=== PATIENT | female | born 2000 | race Caucasian/White ===

== ENCOUNTER 2022-06-27 15:11 | Emergency (ER) | payer BC, SELFPAY ==
[2022-06-27 15:12] VITALS: BP 130/79; PULSE 80; RESP 15; TEMP 36.7; O2SAT 100; BMI 29.7
--- NOTE | 2022-06-27 15:13 | ED.RN ---
PT STATES STANDING MAKES HER ABD PAIN WORSE. BUT SHE IS ALSO HAVING PAIN IN HER FEET.
[2022-06-27 16:11] LABS: Mucous, Urine 0 SEEN /hpf (<or=2+)
[2022-06-27 16:14] LABS: Color, Urine Amber (Yellow); Glucose, Dipstick Normal (Normal); Ketone-Dipstick Negative (Negative); Leukocyte Esterase-Dipstick Negative /ul (Negative); Nitrite-Dipstick Positive (Negative); Occult Blood-Urine 250 /ul (Negative); Protein-Dipstick 30 mg/dl (Negative); Specific Gravity, Urine 1.025 (1.002-1.030); Urine Clarity Sl. Cloudy (Clear); Urine Urobilinogen 8 mg/dl (Normal)
--- NOTE | 2022-06-27 16:15 | CT_ITS ---
STUDY: CT ABDOMEN AND PELVIS WITHOUT CONTRAST ADMINISTRATION OF 1648 HOURS ON 06/27/2022 REASON FOR EXAM: 21-year-old female with left flank pain. RADIATION DOSAGE (If Supplied By Facility): CTDIvol = ( 9.64 ) mGy, DLP = ( 481.62 ) mGycm TECHNIQUE: Transaxial images were obtained from the dome of the diaphragm to the symphysis pubis without oral contrast, and without intravenous contrast. Sagittal and coronal images were reconstructed. COMPARISON: None. FINDINGS: The visualized lung bases are unremarkable. The visualized portions of the heart are within normal limits. Normal liver. Normal gallbladder and extrahepatic biliary system. No cholelithiasis or cholecystitis Normal spleen. Normal pancreas. No pancreatitis or pancreatic mass lesions. Normal bilateral adrenal glands. Normal right kidney. Mildly enlarged left kidney with a mild left hydronephrosis and hydroureter to the level of a 3 mm in diameter calculus in the distal left ureter, just above the left ureterovesical junction. No other left renal abnormalities. Normal visualized stomach. Normal small intestine. No diverticulitis, colitis, intestinal obstruction. The appendix is visualized and appears normal. No appendicitis. Normal abdominal aorta. Normal inferior vena cava. Normal retroperitoneum. Normal urinary bladder. Normal anteverted uterus. No ovarian cystic or solid mass lesions. Normal abdominal wall. Normal osseous structures. CT/Abdomen/Pelvis without Cont IMPRESSION: 1. Mildly enlarged left kidney with a mild left hydronephrosis and hydroureter to the level of a 3 mm in diameter calculus in the distal left ureter, just above the left ureterovesical junction 2. No evidence of other renal abnormalities. 3. No appendicitis, diverticulitis, colitis, or intestinal obstruction. 4. No cholecystitis or pancreatitis. 6. Normal anteverted uterus and normal ovaries. Electronically Signed: Aureliano Charles MD at 17:32 EDT ,
[2022-06-27 16:16] LABS: Urine Bilirubin Dipstick 6 mg/dL (Negative)
[2022-06-27 16:18] LABS: Internal QC Validated? YES +Cl - CLEAR BKGD; Pregnancy, Urine Negative Negative
[2022-06-27] MEDS: Ketorolac 15 MG/ML Vial IV (16:20)
[2022-06-27] MEDS: Ondansetron 4 MG/2 ML Vial IV (16:20)
[2022-06-27 16:22] LABS: Bacteria 1+ /hpf (None Seen); Red Blood Cells-Urine 50-100 SEEN /hpf (0-5); White Blood Cells 0-5 SEEN /hpf (0-5)
[2022-06-27 16:23] LABS: Squamous Epithelial Cells - UA 5-10 SEEN /hpf (5-10)
--- NOTE | 2022-06-27 16:23 | EX.ED.DYSGE1 ---
HPI History of Present Illness Chief Complaint: Flank Pain Informant: patient Narrative Narrative: Patient is a 21-year-old female presenting with left-sided flank pain. She states it started this morning after she was already awake for the day. Its been in her left lower back and the pain has been constant but fluctuates in intensity. She notes that sharp in her back and more pressure in the front of her left flank/lower abdominal area. She had a kidney infection when she was in the eighth grade and denies any history of kidney stones. Denies any urinary symptoms such as hematuria, frequency or urgency. Did take an azo [id number] prior to arrival has not urinated since. Notes family history of kidney stones in both her parents. Has nausea but no vomiting. Denies any fever or chills. Did take a Naprosyn around 12 PM today. Does not get periods because she is on the Depo-Provera shot. Initially went to urgent care and then was sent to the ER. No other complaints at this time. PFSH PFSH Home Medications ciprofloxacin HCl 500 mg tablet (Cipro) 500 mg PO BID #14 tabs 06/27/22 [Rx Last Taken Unknown] ondansetron 4 mg disintegrating tablet 4 mg PO Q6H PRN nausea and vomiting #10 tabs 06/27/22 [Rx Last Taken Unknown] oxycodone-acetaminophen 5 mg-325 mg tablet (Percocet) 1 tab PO Q6H PRN pain 3 days #12 tabs 06/27/22 [Rx Last Taken Unknown] tamsulosin 0.4 mg capsule (Flomax) 0.4 mg PO DAILY #7 caps 06/27/22 [Rx Last Taken Unknown] Allergy/AdvReac Type Severity Reaction Status Date / Time No Known Allergies Allergy Verified 06/27/22 15:12 Social History Smoking Status: Current every day smoker tobacco type: cigarettes, e-cigarettes and smokeless tobacco ROS ROS ED Constitutional Constitutional ED: Denies chills or fever(s) Eyes Eyes: Denies change in vision ENT ENT ED: Denies sore throat Cardiovascular Cardiovascular: Denies chest pain Respiratory/Chest Respiratory/Chest: Denies cough Gastrointestinal Gastrointestinal: Reports abdominal pain, constipation and nausea; Denies diarrhea, melena or vomiting Genitourinary Genitourinary ED: Denies dysuria, hematuria or urinary frequency Musculoskeletal Musculoskeletal: Reports back pain; Denies arthralgias or myalgias Integumentary Denies rash Neurologic Neurologic: Denies headache(s) or weakness Psychiatric Psychiatric: Denies anxiety EXAM Physical Exam Const Vital Signs: 06/27/22 15:12 06/27/22 18:30 06/27/22 21:00 Temperature 98.0 F Temperature Source Temporal Pulse Rate 80 77 74 Respiratory Rate 15 18 13 Blood Pressure 130/79 H 163/84 H 146/94 H Blood Pressure Mean 96 110 Pulse Ox 100 99 98 Oxygen Delivery Method Room Air Room Air Positive well nourished and well developed General Appearance ED: well developed and NAD HEENT Reports moist mucous membranes Eyes PERRL and EOMs intact bilaterally Neck supple General: Negative for tenderness Resp normal respiratory effort and clear to auscultation bilaterally Cardio regular rate and regular rhythm GI normal to inspection, nondistended, normoactive bowel sounds Palpation: tender LLQ; Negative for guarding Back/Spine no CVA tenderness Thoracic Spine / Upper Back: Negative for thoracic spinal tenderness Lumbar Spine / Lower Back: Negative for lumbar spinal tenderness Extremity normal to inspection Neuro oriented x3 Sensorium / Orientation: alert Motor Exam: Negative for general weakness Psych mental status grossly normal Skin no rashes or lesions noted and no wounds MDM MDM MDM Narrative Medical decision making narrative: Patient is evaluated for 1 day of left-sided flank pain. Denies any associated dysuria or hematuria. Has a strong family history of kidney stones. Differential includes pyelonephritis, UTI and kidney stone. CBC and BMP is normal. Kayton's creatinine is 1.07. She is given a liter of IV fluid. Was initially treated with IV Zofran and Toradol with some improvement of her symptoms. She is then treated with IV morphine. Urinalysis shows 50-100 red blood cells with 0-5 white blood cells, some squamous epithelial cell contamination and 1+ bacteria however there are positive nitrites. Urine culture sent. CT abdomen pelvis shows a 3 mm calculus in the distal left ureter just above the left UVJ with some associated hydronephrosis and a mildly enlarged left kidney. Patient has adequate pain control and I think can be treated outpatient. She started on ciprofloxacin, Flomax and given Zofran and Percocet for pain control. She is given follow-up with urology. Is counseled on return precautions. She should pass a kidney stone on her own. She verbalizes agreement and understands this plan. Discharged home in improved and stable condition. Lab Data Labs: Laboratory Results - last 24 hr 06/27/22 06/27/22 06/27/22 15:27 15:27 16:08 WBC 9.5 RBC 4.90 Hgb 13.8 Hct 40.1 MCV 81.8 MCH 28.2 MCHC 34.4 RDW Std Deviation 35.3 RDW Coeff of Yevgeniy 11.9 Plt Count 284 MPV 10.4 Immature Gran % (Auto) 0.200 Neut % (Auto) 52.0 Lymph % (Auto) 37.8 [place] % (Auto) 6.1 Eos % (Auto) 3.3 Baso % (Auto) 0.6 Absolute Neuts (auto) 5.0 Absolute Lymphs (auto) 3.60 Nucleated RBC % 0 Sodium 141 Potassium 3.7 Chloride 108 H Carbon Dioxide 23.0 Anion Gap 10 BUN 10 Creatinine 1.03 H Estim Creat Clear Calc 84.72 Est GFR (MDRD) Af Amer 87 Est GFR (MDRD) Non-Af 72 BUN/Creatinine Ratio 9.7 L Glucose 113 H Calcium 9.4 Urine Color Jess Urine Clarity Sl. Cloudy Urine pH 5.0 Ur Specific [place] 1.025 Urine Protein 30 H Urine Glucose (UA) Normal Urine Ketones Negative Urine Occult Blood 250 H Urine Nitrite Positive H Urine Bilirubin 6 H Urine Urobilinogen 8 H Ur Leukocyte Esterase Negative Urine RBC 50-100 SEEN Urine WBC 0-5 SEEN Ur Squamous Epith Cells 5-10 SEEN Urine Bacteria 1+ Urine Mucus 0 SEEN Urine Test Negative Radiography Diagnostic Testing: Clinical Impression(s) from Imaging Studies Abdomen/Pelvis CT 06/27/22 16:15 IMPRESSION: 1. Mildly enlarged left kidney with a mild left hydronephrosis and hydroureter to the level of a 3 mm in diameter calculus in the distal left ureter, just above the left ureterovesical junction 2. No evidence of other renal abnormalities. 3. No appendicitis, diverticulitis, colitis, or intestinal obstruction. 4. No cholecystitis or pancreatitis. 6. Normal anteverted uterus and normal ovaries. Electronically Signed: Aureliano Charles MD at 17:32 EDT , Discharge Plan Triage Chief Complaint: Flank Pain ED Provider: Leela Hernandez Dx/Rx/DC Orders Clinical Impression: Renal colic on left side, Ureterolithiasis Instructions: ED Kidney Stone w/ Colic Prescriptions: New ciprofloxacin HCl [Cipro] 500 mg tablet 500 mg PO BID Qty: 14 0RF tamsulosin [Flomax] 0.4 mg capsule 0.4 mg PO DAILY Qty: 7 0RF oxycodone-acetaminophen [Percocet] 5-325 mg tablet 1 tab PO Q6H PRN (Reason: pain) 3 Days Qty: 12 0RF ondansetron 4 mg tablet,disintegrating 4 mg PO Q6H PRN (Reason: nausea and vomiting) Qty: 10 0RF Primary Care Provider: Karson Haji,Out of Referrals: Marco Gruber MD [Med Staff - Active Staff] - 3-5 Days [facility] Doctor,Out of [Primary Care Provider] - Disposition Disposition: Home, Self Care Discharge Date/Time: 06/27/22 22:46
[2022-06-27 16:26] LABS: Basophil# 0.06 X10^3/uL; Basophil% 0.6 % (0-1); Eosinophil# 0.31 X10^3/uL; Eosinophils% 3.3 % (0-5); Hematocrit 40.1 % (37-47); Hemoglobin 13.8 g/dL (12.0-15.0); Lymphocyte % 37.8 % (19-41); Mean Corp Hgb Conc 34.4 g/dL (32-36); Mean Corpuscular Hgb 28.2 pg (27.0-32.0); Mean Corpuscular Volume 81.8 fL (81-99); Mean Platelet Vol. 10.4 fl (6.2-12.0); Monocyte# 0.58 X10^3/uL; Monocyte% 6.1 % (0-10); NRBC Flagged by Analyzer 0 % (0-5); Neutrophil # 4.95 X10^3/uL (2.7-7.7); Platelet Count 284 K/mm3 (150-450); RBC Distribution Width CV 11.9 % (11.6-14.6); RBC Distribution Width SD 35.3 fl (35.1-43.9); White Blood Count 9.5 K/mm3 (4.4-11.0)
[2022-06-27 16:46] LABS: Anion Gap 10 (5-15); BUN 10 mg/dL (7-18); BUN/Creat Ratio 9.7 RATIO (10-20); Calcium,Total 9.4 mg/dL (8.5-10.1); Chloride 108 mmol/L (98-107); Creatinine, Serum 1.03 mg/dL (0.55-1.02); EST Glomerular Filtration Rate 72 mL/min (>60); Est Glom Filt Rate - Afr Amer 87 mL/min (>60); Estimated Creatinine Clearance 84.72 ml/min; Glucose 113 mg/dL (74-106); Potassium 3.7 mmol/L (3.5-5.1); Sodium Level 141 mmol/L (136-145)
[2022-06-27] MEDS: Morphine 4 MG/ML Syringe IV (18:27)
[2022-06-27] MEDS: 0.9% Normal Saline 1,000 ML 999 ML IV (18:27)
[2022-06-27 18:30] VITALS: BP 163/84; PULSE 77; RESP 18; O2SAT 99
[2022-06-27 21:00] VITALS: BP 146/94; PULSE 74; RESP 13; O2SAT 98
[2022-06-27] MEDS: Ciprofloxacin 500 MG Tablet PO (21:02)
[2022-06-27] MEDS: oxyCODONE 5 MG Tablet PO (21:02)
== END 2022-06-27 22:46 | disposition home or self-care (01) ==
PROVIDERS: Emergency Provider Emergency Medicine; Visit Provider Emergency Medicine
DX: N13.2 Hydronephrosis with renal and ureteral calculous obstruction (principal); F17.210 Nicotine dependence, cigarettes, uncomplicated; F17.220 Nicotine dependence, chewing tobacco, uncomplicated; F17.290 Nicotine dependence, other tobacco product, uncomplicated; Z84.1 Family history of disorders of kidney and ureter
CPT/HCPCS: 74176; 80048; 81001; 81025; 85025; 87086; 87088; 96361; 96374; 96375; 99283; A4216; J2405